=== PATIENT | female | born 2000 | race Caucasian/White ===

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

== ENCOUNTER 2021-05-17 16:02 | Emergency (ER) | payer OTHER ==
[~2021-05-17] VITALS: Ht 172.7 cm; Wt 86.3 kg
[2021-05-17 17:47] VITALS: BP 168/94
--- NOTE | 2021-05-17 19:08 | RAD ---
Study: XR KNEE _4 VIEWS WITH PATELLA_LT Indication: Pain. Comparison: 05/17/2021 at 1537 hours. Findings: No acute fracture. Alignment is anatomic. Maintained femorotibial compartment joint space height. No relevant knee joint effusion. Impression: No acute osseous abnormality. Electronically signed by: KRYSTAL SANCHEZ MD (05/17/2021 7:06 PM) [facility]
[2021-05-17] MEDS ORDERED: NAPR-514 PO (19:43)
--- NOTE | 2021-05-17 19:43 | PHYS DOC ---
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 Patient denies any injuries. Reports pain is worse on touching her knee and weightbearing. Describes the pain as sharp and intermittent. Denies anything specifically relieving the pain. (YVES WHITAKER APRN) Review of Systems: Review of Systems: Constitutional: Denies fever or chills. [] Musculoskeletal: Reports left knee pain Integument: Denies rash. [] Neurologic: Denies headache, focal weakness or sensory changes. [] Psychiatric: Denies depression or anxiety. [] (YVES WHITAKER APRN) Heart Score: C/O Chest Pain: N/A Risk Factors: Risk Factors: DM, Current or recent (<one month) smoker, HTN, HLP, family history of CAD, obesity. Risk Scores: Score 0 - 3: 2.5% MACE over next 6 weeks - Discharge Home Score 4 - 6: 20.3% MACE over next 6 weeks - Admit for Clinical Observation Score 7 - 10: 72.7% MACE over next 6 weeks - Early Invasive Strategies (YVES WHITAKER APRN) Allergies: Allergies: Allergies Coded Allergies Type Severity Reaction Last Updated Verified No Known Drug Allergies 09/22/17 No (YVES WHITAKER APRN) Physical Exam: PE: Constitutional: Well developed, well nourished, no acute distress, non-toxic appearance. [] Skin: Warm, dry, no erythema, no rash. [] Back: No tenderness, no CVA tenderness. [] Extremities: Left knee with no obvious deformity. Tenderness on palpation of the anterior aspect of the knee. Full range of motion to the left knee, negative Oumar sign, negative Sam sign, negative anterior posterior drawer sign. +2 left pedal pulse. Cap refill less than 2 seconds in left lower extremity. Neurologic: Alert and oriented X 3, normal motor function, normal sensory function, no focal deficits noted. [] Psychologic: Affect normal, judgement normal, mood normal. [] (YVES WHITAKER APRN) Current Patient Data: Vital Signs: Vital Signs Date Time Temp Pulse Resp B/P (MAP) Pulse Ox O2 Delivery O2 Flow Rate FiO2 05/17/21 17:47 97.9 84 12 168/94 (118) 100 Room Air 97.9 (YVES WHITAKER APRN) EKG: EKG: [] (YVES WHITAKER APRN) Radiology/Procedures: Radiology/Procedures: []PROCEDURE: KNEE LEFT 4V Study: XR KNEE _4 VIEWS WITH PATELLA_LT Indication: Pain. Comparison: 05/17/2021 at 1537 hours. Findings: No acute fracture. Alignment is anatomic. Maintained femorotibial compartment joint space height. No relevant knee joint effusion. Impression: No acute osseous abnormality. Electronically signed by: KRYSTAL SANCHEZ MD (05/17/2021 7:06 PM) [facility] DICTATED and SIGNED BY: KRYSTAL SANCHEZ MD DATE: 05/17/21 [id number] (YVES WHITAKER APRN) Course & Med Decision Making: Course & Med Decision Making Pertinent Labs and Imaging studies reviewed. (See chart for details) This is a 20-year-old female patient presented to the ED today with left knee pain, no known injury. Left knee x-rays interpreted by radiologist are negative for any acute findings. Discharged to home. Ice elevation encouraged. Tray wrap recommended. Follow-up with orthopedic doctor in 1 week if pain continues (YVES WHITAKER APRN) Course & Med Decision Making I was the Attending physician on the above date of service of this patient. This patient was evaluated, examined, treated, and dispositioned from the emergency department by the mid-level practitioner. Although I was working at the time , no assistance was requested. Electronically signed, Mk Edward DO (MK EDWARD DO) Enrico Disclaimer: Enrico Disclaimer: This electronic medical record was generated, in whole or in part, using a voice recognition dictation system. (YVES WHITAKER APRN) Departure Departure Impression: Primary Impression: Knee pain, left Qualified Codes: M25.562 - Pain in left knee Disposition: HOME / SELF CARE / HOMELESS Condition: STABLE Referrals: PRITI CONDON APRN (PCP) ASAD POPE DO follow up in one week Patient Instructions: Knee Pain, [id number] Additional Instructions: You were seen for left knee pain, your left knee x-rays were negative for any acute findings. We encourage you to use Tray bandage as needed and tolerated. You can use over the counter pain relievers. Follow-up with Orthopedic doctor i n 1 week if pain persist Scripts Naproxen (NAPROXEN) 500 Mg Tablet 1 TAB PO BID for pain, #20 TAB 0 Refills Prov: YVES WHITAKER APRN 05/17/21 YVES WHITAKER APRN May 17, 2021 19:43 MK EDWARD DO May 21, 2021 17:32
== END 2021-05-17 19:55 | disposition home or self-care (01) ==
LOC: ER 16:02
DX: M25.562 Pain in left knee (principal)
CPT/HCPCS: 73564; 99283

== ENCOUNTER → 2021-05-17 | Outpatient (CLI) | payer OTHER ==
[~2021-05-17] MED LIST: NAPR-514 PO
--- NOTE | 2021-05-17 17:44 | KCIC ---
XR KNEE _3 VIEWS_LT DATE: 05/17/2021 3:39 PM INDICATION: General knee pain 1 month. Lifting injury. COMPARISON: None. FINDINGS: Bones: There is no evidence of acute fracture or dislocation. Joints: The joint spaces are normal. There is no joint effusion. Miscellaneous: None. IMPRESSION: No evidence of acute fracture. Electronically signed by: Francis Garcia MD (05/17/2021 5:42 PM) [id number]
== END ==
LOC: KCIC 15:34
PROVIDERS: ATTEND Nurse Practitioner Family
DX: M25.562 Pain in left knee (principal)
CPT/HCPCS: 73562

== ENCOUNTER → 2021-05-25 | Outpatient (CLI) | payer OTHER ==
[2021-05-17 17:47] VITALS: BP 168/94
--- NOTE | 2021-05-25 18:41 | RAD ---
EXAMINATION: MRI LEFT LOWER EXTREMITY JOINT WITHOUT INDICATIONS: Left knee pain. TECHNIQUE: Multiplanar multisequence MRI of the left knee was obtained without contrast. COMPARISON: Left knee radiograph 05/17/2021 FINDINGS: MENISCI: The medial and lateral menisci are intact. LIGAMENTS: The anterior and posterior cruciate ligaments are intact. The medial collateral ligament and lateral collateral ligament complex are intact. EXTENSOR MECHANISM: The quadriceps and patellar tendons are intact. Fat pads are normal. Retinacula are intact. BONES AND CARTILAGE: No acute fracture. Marrow signal is normal. Articular cartilage is intact. OTHER: No joint effusion or bursitis. Mild in intramuscular edema of the visualized portion of the v astus medialis and metastasis lateral to and intermedius muscles and small amount of fluid along the distal vastus medialis muscle. Remaining muscles are normal in appearance. Remaining tendons are inta ct. IMPRESSION: 1. No evidence of internal derangement. 2. Mild intramuscular edema in the visualized distal portion of the vastus musculature. Small amount of fluid along the vastus medialis muscle. Correlate for quadriceps muscle strain. Electronically signed by: Emily Brice MD (05/25/2021 6:38 PM) [id number]
== END ==
LOC: MRI 13:01
PROVIDERS: ATTEND Orthopaedic Surgery
DX: M25.562 Pain in left knee (principal); R60.9 Edema, unspecified
CPT/HCPCS: 73721

== ENCOUNTER → 2021-08-25 | Outpatient (CLI) | payer OTHER ==
--- NOTE | 2021-08-26 13:13 | KCIC ---
Exam Date: 08/25/2021 11:15 AM XR HAND_RIGHT 3 VIEWS Indication: Reason: RIGHT HAND PAIN / Spl. Instructions: Unexplained right hand pain, swelling and di scoloration for mths. / History: . FINDINGS/ IMPRESSION: No acute fracture or dislocation. Alignment and joint spaces are maintained. The soft tissues are w ithin normal limits. Electronically signed by: Merrill Cole MD (08/26/2021 1:11 PM) [id number]
== END ==
LOC: KCIC 11:05
PROVIDERS: ATTEND Nurse Practitioner Family
DX: M79.641 Pain in right hand (principal)
CPT/HCPCS: 73130

== ENCOUNTER → 2021-11-08 | Outpatient (CLI) | payer OTHER ==
[2021-11-08 11:33] LABS: BASO % 1 % (0-3); EOS # 0.1 x10^3/uL (0.0-0.7); EOS % 2 % (0-3); HEMATOCRIT 39.1 % (36.0-47.0); HEMOGLOBIN 12.9 g/dL (12.0-15.5); LYMPH # 2.3 x10^3/uL (1.0-4.8); LYMPH % 31 % (24-48); MEAN CORPUSCULAR HEMOGLOBIN 27 pg (25-35); MEAN CORPUSCULAR HGB CONC 33 g/dL (31-37); MEAN CORPUSCULAR VOLUME 82 fL (79-100); MONO # 0.4 x10^3/uL (0.0-1.1); MONO % 6 % (0-9); NEUT # 4.4 x10^3/uL (1.8-7.7); NEUT % 61 % (31-73); PLATELET COUNT 302 x10^3/uL (140-400); RED BLOOD COUNT 4.76 x10^6/uL (3.50-5.40); RED CELL DISTRIBUTION WIDTH 14.5 % (11.5-14.5); WHITE BLOOD COUNT 7.3 x10^3/uL (4.0-11.0)
[2021-11-08 11:58] LABS: ALBUMIN 3.7 g/dL (3.4-5.0); ALBUMIN/GLOBULIN RATIO 0.9 (1.0-1.7); CALCIUM 9.2 mg/dL (8.5-10.1); CREATININE 0.8 mg/dL (0.6-1.0); GFR 91.4; POTASSIUM 4.3 mmol/L (3.5-5.1); TOTAL BILIRUBIN 0.4 mg/dL (0.2-1.0); TOTAL PROTEIN 7.6 g/dL (6.4-8.2)
[2021-11-08 11:59] LABS: CHOLESTEROL/HDL RATIO 5.2
== END ==
LOC: LAB 10:57
PROVIDERS: ATTEND Nurse Practitioner Family
DX: Z13.228 Encounter for screening for other metabolic disorders (principal)
CPT/HCPCS: 36415; 80053; 80061; 82306; 83540; 83550; 85025

== ENCOUNTER → 2021-12-23 | Outpatient (CLI) | payer OTHER ==
--- NOTE | 2021-12-23 10:11 | KCIC ---
Clinical History: Right upper quadrant. Technique: Sonographic examination of the right upper quadrant of the abdomen was performed and mult iple static images were obtained. Comparison: none Findings: Liver: The majority of the liver is visualized and appears homogeneous. Common bile duct: Appears normal and measures 3 mm in diameter. Gallbladder: appears normal. Pancreas: is not well visualized due to overlying bowel gas but appears within normal limits. Right kidney: appears normal and measures 12 cm in length. Main Portal Vein: Normal hepatopedal flow Aorta: normal IVC: normal Impression: Negative. No evidence of gallbladder disease. Electronically signed by: Corey Sánchez III, MD (12/23/2021 10:09 AM) [facility]
== END ==
LOC: KCIC US 07:55
PROVIDERS: ATTEND Nurse Practitioner Family
DX: R10.11 Right upper quadrant pain (principal)
CPT/HCPCS: 76705